=== PATIENT | male | born 1995 | race African-American/Black ===

== ENCOUNTER 2016-05-23 10:43 | Emergency (ER) | payer MEDICAID ==
[~2016-05-23] VITALS: Ht 188 cm; Wt 77.3 kg
[2016-05-23 10:46] VITALS: BP 157/86; PULSE 84; RESP 16; TEMP 98.2; O2SAT 99
--- NOTE | 2016-05-23 11:05 | PD ---
HPI Chief Complaint: ENT Complaint Time Seen by Provider: 11:05 Travel History International Travel<30 days: No Contact w/Intl Traveler<30days: No Traveled to known affect area: No History of Present Illness HPI 19-year-old male presents to the emergency Department with complaint of sore throat 3 weeks. He had fever in the beginning but not now. Denies cough. Denies ear pain or nasal congestion. Denies not been throat, unusual drooling, difficulty swallowing. Pain is aggravated with swallowing. Has tried over-the- counter medications with some symptom relief. Denies headache, nausea, vomiting , abdominal pain. Denies difficulty breathing, stridor. Has a friend that had a sore throat also. Denies significant past medical history. No known allergies. Denies tobacco use. No other modifying factors or associated signs and symptoms. PFSH Past Medical History Medical History: Denies Significant Hx Social History Tobacco Use: No Allergies-Medications (Allergen,Severity, Reaction): Coded Allergies: No Known Allergies (Unverified , 05/23/16) Reported Meds & Prescriptions Reported Meds & Active Scripts Active Ibuprofen 800 Mg Tab 800 Mg PO Q6HR PRN Magic Mouthwash Adult Liq (Multi-Ingredient Mouthwash/Gargle) 120 Ml Susp 5 Ml SWISH-SPIT Q3HR PRN Each 5 mL contains: Nystatin 200,000 units, Diphenhydramine 4.25 mg, Viscous Lidocaine 10 mg, Emery syrup 0.8 mL Review of Systems Except as stated in HPI: all other systems reviewed are Neg Physical Exam Narrative GENERAL: Well-nourished, well-developed male patient, in no acute distress; afebrile, nontoxic-appearing SKIN: Warm and dry. No rash. HEAD: Atraumatic. Normocephalic. EYES: Pupils equal and round at 3 mm with brisk reaction. No scleral icterus. No injection or drainage. PERRLA. ENT: Mucosa pink and dry. Pharynx with 2+ tonsils; with erythema; without exudate, and edema. No Uvular edema. No uvular, palatal, or tonsillar deviation. Airway patent. EARS: Bilateral pinnae and external canals appear within normal limits. Bilateral tympanic membranes without erythema, dullness or perforation.. NECK: Trachea midline. No Anterior cervical lymphadenopathy and tenderness. CARDIOVASCULAR: Regular rate and rhythm. No murmur appreciated. RESPIRATORY: No accessory muscle use. Clear to auscultation. Breath sounds equal bilaterally. GASTROINTESTINAL: Abdomen soft, non-tender, nondistended. Hepatic and splenic margins not palpable. Bowel sounds are active 4 quadrants. MUSCULOSKELETAL: No obvious deformities. No clubbing. No cyanosis. No edema. NEUROLOGICAL: Awake and alert. Oriented 3. No obvious cranial nerve deficits. Motor grossly within normal limits. Normal speech. Moves all extremities. PSYCHIATRIC: Appropriate mood and affect; insight and judgment normal. Data Data Last Documented VS Vital Signs Date Time Temp Pulse Resp B/P Pulse Ox O2 Delivery O2 Flow Rate FiO2 05/23/16 10:46 98.2 84 16 157/86 99 Room Air Orders Group A Rapid Strep Screen (05/23/16 11:05) Strep Culture (Group A) (05/23/16 11:15) [facility] Medical Decision Making Medical Screen Exam Complete: Yes Emergency Medical Condition: Yes Medical Record Reviewed: Yes Differential Diagnosis Strep pharyngitis, viral pharyngitis, less likely peritonsillar abscess Narrative Course 20-year-old male with sore throat for the last 3 weeks. Afebrile. Nontoxic appearing. Denies lump in throat, unusual drooling, difficulty swallowing. The oropharynx is erythematous but without exudate. Using Centor score for management of sore throat the patient's risk of GABHS pharyngitis is Score 2= risk of GABHS 11-17%=perform rapid strep swab. Rapid strep swab ordered. 1144: Rapid strep negative. Magic mouthwash and ibuprofen prescribed for home. Patient is medically cleared and stable for discharge. Discussed reasons to return to the emergency department. Instructed patient to follow up with primary care provider. Patient agrees with treatment plan. The patients vital signs are stable and the patient is stable for outpatient follow-up and treatment. Patient discharged home, stable and in no acute distress. Diagnosis Primary Impression: Pharyngitis Qualified Code: J02.9 - Pharyngitis, unspecified etiology Referrals: Primary Care Physician Patient Instructions: General Instructions, Pharyngitis (ED) Departure Forms: Tests/Procedures, Work Release Enter return to work date: May 24, 2016 Additional Instructions: Take Antibiotics as prescribed and complete full course of antibiotics Get plenty of sleep/rest Rest your voice Drink plenty of fluids to prevent dehydration Use warm saltwater gargles to soothe throat pain Use an air humidifier/turn off ceiling fans Use throat lozenges as needed for sore throat Use ibuprofen or acetaminophen as needed to relieve pain and fever Follow-up with your primary care provider within 2-4 days Return immediately to the emergency department with worsening of symptoms Med/Other Pt SpecificInfo: Prescription(s) given Scripts Ibuprofen 800 Mg Ixp782 Mg PO Q6HR PRN (PAIN) #30 TAB Ref 0 Prov:Cristina Moore 05/23/16 [id number]-Molpegsqs Liq (Magic Mouthwash Adult Liq)120 Ml Susp5 Ml SWISH-SPIT Q3HR PRN (SORE THROAT) #120 ML Ref 0 Each 5 mL contains: Nystatin 200,000 units, Diphenhydramine 4.25 mg, Viscous Lidocaine 10 mg, Emery syrup 0.8 mL Prov:Cristina Moore 05/23/16 Disposition: 01 DISCHARGE HOME Condition: Stable Cristina Moore May 23, 2016 11:05
[2016-05-23] MEDS ORDERED: MAGICADU2 SWISH-SPIT (11:25)
[2016-05-23] MEDS ORDERED: IBUP800T23 PO (11:25)
== END 2016-05-23 11:58 | disposition home or self-care (01) ==
LOC: NEPB 10:43
DX: J02.9 Acute pharyngitis, unspecified (principal)
CPT/HCPCS: 87081; 87880; 99283